=== PATIENT | male | born 1955 | race Caucasian/White ===

== ENCOUNTER → 2017-09-04 | Outpatient (CLI) | payer OTHER ==
[~2017-09-04] MED LIST: ALLOPURINOL 30300 M2 PO; PROTONIX40 M1 PO
[2017-09-04 11:14] LABS: CHOLESTEROL 158 mg/dL (<200); HDL CHOLESTEROL 38 mg/dL (>40); LDL CHOLESTEROL 91 mg/dL (<100); TC:HDL 4.2 Ratio (Not establshd); TRIGLYCERIDE 149 mg/dL (<150); VLDL 30 mg/dL (<40)
[2017-09-04 11:15] LABS: SERUM ASSESSMENT Clear
== END ==
LOC: M.LAB 10:40
PROVIDERS: Internal Medicine Cardiovascular Disease
DX: E78.00 Pure hypercholesterolemia, unspecified (principal)

== ENCOUNTER → 2018-02-19 | Outpatient (CLI) | payer OTHER ==
[2018-02-19 09:16] LABS: CHOLESTEROL 153 mg/dL (<200); HDL CHOLESTEROL 53 mg/dL (>40); LDL CHOLESTEROL 87 mg/dL (<100); TC:HDL 2.9 Ratio (Not establshd); TRIGLYCERIDE 66 mg/dL (<150); VLDL 13 mg/dL (<40)
[2018-02-19 09:21] LABS: SERUM ASSESSMENT Clear
== END ==
LOC: M.LAB 08:44
PROVIDERS: Internal Medicine Cardiovascular Disease
DX: E78.00 Pure hypercholesterolemia, unspecified (principal)

== ENCOUNTER → 2018-07-03 | Outpatient (CLI) | payer MEDICARE, OTHER ==
[2018-07-03 09:03] LABS: CHOLESTEROL 134 mg/dL (<200); HDL CHOLESTEROL 38 mg/dL (>40); LDL CHOLESTEROL 73 mg/dL (<100); TC:HDL 3.5 Ratio (Not establshd); TRIGLYCERIDE 115 mg/dL (<150); VLDL 23 mg/dL (<40)
[2018-07-03 09:05] LABS: SERUM ASSESSMENT Clear
== END ==
LOC: M.LAB 08:06
PROVIDERS: Internal Medicine Cardiovascular Disease
DX: E78.5 Hyperlipidemia, unspecified (principal)

== ENCOUNTER → 2018-07-15 | Outpatient (CLI) | payer MEDICARE, OTHER ==
--- NOTE | 2018-07-19 07:55 | SLEEP ---
[address] [address] SLEEP STUDY REPORT Name: JUANMASSIELCAITYJESU CARLINE Room: [facility]#: [id number] Admission: 07/15/18 Attend Phys: Edward Vergara MD Discharge: Date of : 51 Report #: [id number] THIS REPORT FOR: //name// CC: Jai Vergara This study has been reviewed in its entirety by a board certified sleep specialist DATE OF SERVICE: 07/18/2018 SLEEP STUDY ATTENDING PHYSICIAN: Dr. Edward Vergara. DATE OF THE STUDY: 07/15/2018. The patient is a 63-year-old who weighs 254 pounds with a BMI of 34. The patient's [place] score was 11. The patient underwent a split night study at [facility]. During the night study, the patient spent 473 minutes in bed and slept for 203 minutes with a low sleep efficiency of 57%. Sleep latency was prolonged at 81.5 minutes with a REM latency of 269 minutes. Overall, sleep architecture showed normal stage 1 and stage 2 sleep, normal N3 sleep and reduced REM sleep, which was 15% of the total sleep time. During the initial diagnostic portion of the study, the patient slept for 131 minutes. During that time, the patient had 9 central apneas, no mixed apneas and 3 obstructive apneas along with 16 hypopneas. The patient's apnea-hypopnea index during the diagnostic portion was 38 per hour with a supine index of 45 per hour. REM sleep was not seen during the diagnostic portion. Review of EKG monitoring revealed an average heart rate of 54 beats per minute. No sustained arrhythmias observed. PLMS was seen at an index of 117 per hour and 46 per hour caused EEG arousals. Nocturnal oximetry study revealed an average oxygen saturation of 95% with a lowest of 90%. The patient met the criteria for CPAP initiation. It was started at 8 cm water and titrated up to 14 cm water. At the final pressure, the patient slept for 51 minutes. The patient had 16 minutes of REM sleep as well. The patient's AHI was reduced to 0 per hour and oxygen saturations remained above 94%. The patient had supine as well as REM [place] [address] SLEEP STUDY REPORT Name: JESU BENITEZ Room: [facility]#: [id number] Admission: 07/15/18 Attend Phys: Edward Vergara MD Discharge: Date of : 51 Report #: [id number] IMPRESSION: 1. Severe sleep apnea-hypopnea syndrome at an AHI of 38 per hour. 2. Nocturnal hypoxia secondary to obstructive sleep apnea, but resolved with CPAP. 3. Severe periodic limb movements. RECOMMENDATIONS: 1. CPAP at 14 cm water completely eliminated the patient's sleep apnea and should be used on a nightly basis. 2. Follow up in 4-6 weeks to assess compliance with CPAP and to document clinical improvement. 3. Weight loss is strongly advised. 4. Avoid [employer] depressants. 5. Cautioned regarding driving until symptoms of sleep apnea resolved with the use of CPAP. 6. The patient should also be further evaluated for symptoms of restless legs during the day. <ELECTRONICALLY SIGNED> By: Corey Howe MD 07/19/18 [id number] Howe MD /nt
== END ==
LOC: M.SLEEPLAB 19:59
DX: G47.33 Obstructive sleep apnea (adult) (pediatric) (principal); G47.61 Periodic limb movement disorder; R09.02 Hypoxemia; R06.83 Snoring; E66.3 Overweight

== ENCOUNTER → 2020-02-27 | Outpatient (CLI) | payer MEDICARE, OTHER ==
[2020-02-27 09:08] LABS: ALBUMIN 3.5 g/dL (3.4-5.0); ALKALINE PHOSPHATASE 66 U/L (46-116); CHOLESTEROL 152 mg/dL (<200); DIRECT BILIRUBIN 0.2 mg/dL (<0.1-0.3); HDL CHOLESTEROL 39 mg/dL (>40); LDL CHOLESTEROL 92 mg/dL (<100); SERUM ASSESSMENT Clear; SGOT 38 U/L (15-37); SGPT 54 U/L (30-65); TC:HDL 3.9 Ratio (Not establshd); TOTAL BILIRUBIN 0.9 mg/dL (<0.1-1.0); TRIGLYCERIDE 105 mg/dL (<150); VLDL 21 mg/dL (<40)
== END ==
LOC: M.LAB 08:38
PROVIDERS: ATTEND Internal Medicine Cardiovascular Disease
DX: E78.5 Hyperlipidemia, unspecified (principal); I25.10 Atherosclerotic heart disease of native coronary artery without angina pectoris; E78.00 Pure hypercholesterolemia, unspecified